=== PATIENT | male | born 1970 | race Caucasian/White ===

== ENCOUNTER 2017-02-23 12:17 | Day surgery (SDC) | payer OTHER ==
[~2017-02-23] VITALS: Ht 185.4 cm; Wt 102.1 kg
[2017-02-23] MEDS ORDERED: METOCLOPRAMIDE HCL 10 MG/2 ML VIAL ONE (14:00)
[2017-02-23] MEDS ORDERED: MEPERIDINE HCL/PF 100 MG/ML AMP ONE (14:00)
[2017-02-23] MEDS ORDERED: LR 1,000 ML IV.SOLN IV ONE (14:00)
[2017-02-23] MEDS ORDERED: SEVOFLURANE 15 MIN GAS INH ONE (14:00)
[2017-02-23] MEDS ORDERED: PROPOFOL 200MG/ 20ML VIAL (DIPRIVAN) IV ONE (14:00)
[2017-02-23] MEDS ORDERED: fentaNYL CITRATE 250 MCG/5 ML AMP ONE (14:00)
[2017-02-23] MEDS ORDERED: ROCURONIUM BROMIDE 10 MG/ML (ZEMURON) ONE (14:00)
[2017-02-23] MEDS ORDERED: MIDAZOLAM HCL 5 MG/5 ML VIAL ONE (14:00)
[2017-02-23] MEDS ORDERED: KETOROLAC TROMETHAMINE 30 MG VIAL ONE (14:00)
[2017-02-23] MEDS ORDERED: NS IRRIG SOLN 1000 ML IR ONE (14:00)
[2017-02-23] MEDS ORDERED: ONDANSETRON HCL 4 MG/2 ML VIAL IVP PRN ×3 (16:00→16:15)
[2017-02-23] MEDS ORDERED: MORPHINE 4 MG/ML INJ. SYRINGE IVP ONE (16:00)
[2017-02-23] MEDS ORDERED: MORPHINE 4 MG/ML INJ. SYRINGE IVP PRN (16:00)
[2017-02-23] MEDS ORDERED: ACETAMINOPHEN/CODEINE 300 MG-30 MG TABLET PO PRN (16:00)
[2017-02-23] MEDS ORDERED: LR 1,000 ML IV ONE (16:04)
[2017-02-23] MEDS ORDERED: NALOXONE HCL 0.4 MG/ML AMP (NARCAN) IVP PRN (16:15)
[2017-02-23] MEDS ORDERED: fentaNYL CITRATE/PF 100 MCG/2 ML AMP IVP PRN (16:15)
[2017-02-23] MEDS ORDERED: DIPHENHYDRAMINE INJ 50 MG/ML VIAL IVP PRN (16:15)
[2017-02-23] MEDS ORDERED: ePHEDrine sulfate 50 MG/ML VIAL IVP PRN (16:15)
[2017-02-23] MEDS ORDERED: NALBUPHINE HCL 10 MG/ML AMP IVP PRN (16:15)
[2017-02-23] MEDS ORDERED: fentaNYL CITRATE/PF 100 MCG/2 ML AMP ONE (16:38)
[2017-02-23 17:12] VITALS: BP_SYST 122
== END 2017-02-23 18:10 | disposition home or self-care (01) ==
LOC: SDS 12:17
PROVIDERS: ATTEND Surgery
DX: K64.8 Other hemorrhoids (principal); K64.4 Residual hemorrhoidal skin tags
CPT/HCPCS: 46255; 88304; J1885; J2175; J2250; J2704; J2765; J3010 ×2; J7120